=== PATIENT | female | born 1950 | race Caucasian/White ===

== ENCOUNTER 2025-01-21 14:23 | Inpatient (IN) | payer MEDICARE ==
[~2025-01-21] VITALS: Ht 162.6 cm; Wt 93.7 kg
[2025-01-21 15:03] LABS: PLATELET COUNT (AUTO) 287 K/uL (150-450); RED BLOOD CELL COUNT(AUTO) 4.52 MIL/uL (4.00-5.20); RED CELL DISTRIBUTION WIDTH 15.6 % (11.5-14.5); WHITE BLOOD COUNT (AUTO) 6.2 K/uL (4.5-11.0)
[2025-01-21 15:24] LABS: CALCIUM, TOTAL 8.9 mg/dL (8.8-10.5); CREATININE 0.98 mg/dL (0.60-1.30); GLOMERULAR FILTR. RATE CALC 55.0 mL/min (>60); GLUCOSE,RANDOM 128.0 mg/dL (70-110); SODIUM SERUM 141.0 mmol/L (136-145); UREA NITROGEN, BLOOD 16.0 mg/dL (7-18)
[2025-01-21 15:28] LABS: ASPARTATE AMINOTRANSFERASE 28.0 U/L (15-37); CHOL/HDL RATIO 6.5 (3.9-5.7); LDL CHOL (CALC.) 142.0 mg/dL (0-130); TOTAL PROTEIN, SERUM 7.7 g/dL (6.4-8.2)
[2025-01-21 15:31] LABS: TROPONIN I-HIGH SENSITIVITY 12 ng/L (<51)
[2025-01-21] MEDS: CLOPIDOGREL BISULFATE 300 MG TABLET PO ONE (16:09)
[2025-01-21] MEDS: ASPIRIN 81 MG CHEWABLE TABLET PO ONE (17:53)
[2025-01-21] MEDS: LABETALOL HCL 5 MG/ML 20 ML VIAL IVP PRN (17:53)
[2025-01-21] MEDS ORDERED: LABETALOL HCL 5 MG/ML 20 ML VIAL IVP PRN (20:30)
[2025-01-21 20:41] LABS: TROPONIN I-HIGH SENSITIVITY 13 ng/L (<51)
[2025-01-21] MEDS: ATORVASTATIN CALCIUM 40 MG TABLET PO SCH (21:00)
[2025-01-21 22:05] VITALS: BP 190/83; PULSE 70; RESP 18; TEMP 98.2; O2SAT 98
[2025-01-22] VITALS (8 sets, daily range): BP systolic 135–185; BP diastolic 50–108; PULSE 66–100; RESP 17–18; TEMP 97.7–98.2; O2SAT 95–98
[2025-01-22 06:23] LABS: PLATELET COUNT (AUTO) 283 K/uL (150-450); RED BLOOD CELL COUNT(AUTO) 4.29 MIL/uL (4.00-5.20); RED CELL DISTRIBUTION WIDTH 15.4 % (11.5-14.5); WHITE BLOOD COUNT (AUTO) 6.5 K/uL (4.5-11.0)
[2025-01-22 06:38] LABS: CALCIUM, TOTAL 8.8 mg/dL (8.8-10.5); CREATININE 0.95 mg/dL (0.60-1.30); GLOMERULAR FILTR. RATE CALC 58.0 mL/min (>60); GLUCOSE,RANDOM 113.0 mg/dL (70-110); SODIUM SERUM 139.0 mmol/L (136-145); UREA NITROGEN, BLOOD 13.0 mg/dL (7-18)
[2025-01-22 06:45] LABS: TROPONIN I-HIGH SENSITIVITY 13 ng/L (<51)
[2025-01-22] MEDS: CLOPIDOGREL BISULFATE 75 MG TABLET PO SCH (09:13)
[2025-01-22] MEDS: ASPIRIN 81 MG CHEWABLE TABLET PO SCH (09:14)
[2025-01-22] MEDS ORDERED: POTASSIUM CHL 10 MEQ/WATER 50 ML IV PRN (10:00)
[2025-01-22] MEDS: POTASSIUM CHLORIDE 20 MEQ ER TABLET PO PRN (12:45)
[2025-01-22] MEDS: CALCIUM CARBONATE 500 MG CHEWABLE TABLET CHEW ONE (17:14)
[2025-01-23] VITALS (10 sets, daily range): BP systolic 102–197; BP diastolic 54–94; PULSE 66–80; RESP 18–20; TEMP 97.5–99; O2SAT 95–100
[2025-01-23] MEDS ORDERED: 0.9% SODIUM CHLORIDE 5 ML NEB SOLUTION NEB ONE (02:34)
[2025-01-23] MEDS: ALBUTEROL SULFATE 2.5 MG/0.5 ML NEB SOLUTION NEB PRN (02:39)
[2025-01-23] MEDS ORDERED: ALBUTEROL SULFATE 2.5 MG/0.5 ML NEB SOLUTION NEB SCH (03:00)
[2025-01-23 06:03] LABS: PLATELET COUNT (AUTO) 281 K/uL (150-450); RED BLOOD CELL COUNT(AUTO) 4.18 MIL/uL (4.00-5.20); RED CELL DISTRIBUTION WIDTH 15.5 % (11.5-14.5); WHITE BLOOD COUNT (AUTO) 6.7 K/uL (4.5-11.0)
[2025-01-23 06:24] LABS: CALCIUM, TOTAL 8.6 mg/dL (8.8-10.5); CREATININE 1.2 mg/dL (0.60-1.30); GLOMERULAR FILTR. RATE CALC 44.0 mL/min (>60); GLUCOSE,RANDOM 111.0 mg/dL (70-110); SODIUM SERUM 139.0 mmol/L (136-145); UREA NITROGEN, BLOOD 16.0 mg/dL (7-18)
[2025-01-23] MEDS: RINGERS SOLUTION,LACTATED 1,000 ML IV ONE (10:36)
[2025-01-23 16:33] LABS: APPEARANCE,URINE HAZY (CLEAR); GLUCOSE, URINE (UA) NEGATIVE (NEGATIVE); LEUKOCYTE ESTERASE ,URINE LARGE (NEGATIVE); NITRATE,URINE POSITIVE (NEGATIVE); OCCULT BLOOD,URINE SMALL (NEGATIVE); PH,URINE DRUG SCREEN 6.0 (5.0-8.0); SPECIFIC GRAVITIY, URINE 1.025 (1.003-1.030)
[2025-01-23 16:41] LABS: ALCOHOL, URINE DRUG SCREEN NEGATIVE (NEGATIVE); AMPHET/METH SCREEN,URINE NEGATIVE (NEGATIVE); BARBITURATE SCREEN, URINE NEGATIVE (NEGATIVE); CANNABINOID SCREEN,URINE POSITIVE (NEGATIVE); COCAINE SCREEN,URINE NEGATIVE (NEGATIVE); METHADONE SCREEN, URINE NEGATIVE (NEGATIVE)
[2025-01-23 16:42] LABS: CREATININE,URINE RANDOM 221.8 mg/dL (30.0-125.0)
[2025-01-23 16:45] LABS: SQUAMOUS EPITHELIAL CELL,UR Many /LPF (None Seen)
[2025-01-23] MEDS: METOPROLOL SUCCINATE 25 MG ER TABLET PO SCH (21:09)
[2025-01-24] VITALS (7 sets, daily range): BP systolic 135–176; BP diastolic 57–72; PULSE 62–66; RESP 18–20; TEMP 98–98.4; O2SAT 96–98
[2025-01-24 07:52] LABS: PLATELET COUNT (AUTO) 278 K/uL (150-450); RED BLOOD CELL COUNT(AUTO) 4.17 MIL/uL (4.00-5.20); RED CELL DISTRIBUTION WIDTH 15.5 % (11.5-14.5); WHITE BLOOD COUNT (AUTO) 6.5 K/uL (4.5-11.0)
[2025-01-24 08:06] LABS: CALCIUM, TOTAL 8.7 mg/dL (8.8-10.5); CREATININE 1.05 mg/dL (0.60-1.30); GLOMERULAR FILTR. RATE CALC 51.0 mL/min (>60); GLUCOSE,RANDOM 104.0 mg/dL (70-110); SODIUM SERUM 139.0 mmol/L (136-145); UREA NITROGEN, BLOOD 16.0 mg/dL (7-18)
[2025-01-24] MEDS: LABETALOL HCL 200 MG TABLET PO SCH (11:42)
[2025-01-24 21:07] LABS: HEPATITIS C AB (EIA) Non Reactive (Non Reactive)
[2025-01-25 04:17] VITALS: BP 104/51; PULSE 60; RESP 17; TEMP 98.1; O2SAT 99
[2025-01-25 08:20] LABS: PLATELET COUNT (AUTO) 265 K/uL (150-450); RED BLOOD CELL COUNT(AUTO) 3.86 MIL/uL (4.00-5.20); RED CELL DISTRIBUTION WIDTH 15.8 % (11.5-14.5); WHITE BLOOD COUNT (AUTO) 7.5 K/uL (4.5-11.0)
[2025-01-25 08:32] LABS: CALCIUM, TOTAL 8.4 mg/dL (8.8-10.5); CREATININE 1.21 mg/dL (0.60-1.30); GLOMERULAR FILTR. RATE CALC 43.0 mL/min (>60); GLUCOSE,RANDOM 96.0 mg/dL (70-110); SODIUM SERUM 140.0 mmol/L (136-145); UREA NITROGEN, BLOOD 20.0 mg/dL (7-18)
[2025-01-25 08:35] VITALS: BP 127/70; PULSE 58; RESP 18; TEMP 98; O2SAT 97
[2025-01-25] MEDS ORDERED: CLOP75TA83 PO (10:14)
[2025-01-25] MEDS ORDERED: LISI-892 PO (10:14)
[2025-01-25] MEDS ORDERED: ASPI-1450 PO (10:14)
[2025-01-25] MEDS ORDERED: LABE200T56 PO (10:14)
[2025-01-25] MEDS ORDERED: ATOR40TA71 PO (10:14)
[2025-01-25] MEDS: SODIUM CHLORIDE 0.9% 500 ML IV ONE (11:26)
[2025-01-25] MEDS: CefTRIAXone 1 GM/DEXTROSE 50 ML IV ONE (11:26)
[2025-01-25 11:40] LABS: GLUCOMETER DEV NAME(LOC) 5N.1D; GLUCOSE,POINT OF CARE 111 MG/DL (70-110)
[2025-01-25 12:20] VITALS: BP 121/71; PULSE 57; RESP 18; TEMP 97.8; O2SAT 98
[2025-01-26] MEDS ORDERED: CEPHALEXIN MONOHYDRATE 500 MG CAPSULE PO SCH (16:00)
== END 2025-01-25 13:55 | DRG 64 ==
LOC: EMS 14:23 → EDH 16:03 → 5S 21:38
PROVIDERS: ADMIT Internal Medicine; ATTEND Internal Medicine
DX: I63.9 Cerebral infarction, unspecified (principal); N17.0 Acute kidney failure with tubular necrosis; I16.1 Hypertensive emergency; I69.354 Hemiplegia and hemiparesis following cerebral infarction affecting left non-dominant side; E11.9 Type 2 diabetes mellitus without complications; E66.9 Obesity, unspecified; I10 Essential (primary) hypertension; E78.00 Pure hypercholesterolemia, unspecified; R29.700 NIHSS score 0; R47.1 Dysarthria and anarthria; N87.9 Dysplasia of cervix uteri, unspecified; Z68.35 Body mass index [BMI] 35.0-35.9, adult; Z79.899 Other long term (current) drug therapy
CPT/HCPCS: 70496; 70498; 70551; 71045; 80048; 80053; 80061; 80307; 81001; 82570; 82948; 82962; 83036; 83735; 84132; 84145; 84300; 84484; 85025; 85610; 85730; 86803; 86850; 86900; 86901; 87077; 87086; 87186; 87340; 92523; 92526; 92610; 93005; 93306; 94640; 94760; 97112; 97116; 97162; 97167; 97530; 97535; 99291; J0360; J0696; J3490; J7040; J7050; J7120; 36415-L1; 36415-TC; 70450; 70450-TC; J7613